=== PATIENT | female | born 1945 ===

== ENCOUNTER 2022-11-15 05:00 | Day surgery (SDC) | payer OTHER ==
[~2022-11-15] VITALS: Ht 170.2 cm; Wt 77.1 kg
[~2022-11-15 05:00] MED LIST: ALPRAZOLAM ER0.5 MG PO; AMBIEN10 MG PO; COZAAR50 MG PO; GLUMETZA500 MG PO; [UNRECOGNIZED DRUG - OTHER] PO
== END 2022-11-15 12:50 | disposition home or self-care (01) ==
LOC: CIR.AMB 05:00
PROVIDERS: ATTEND Specialist
DX: K40.90 Unilateral inguinal hernia, without obstruction or gangrene, not specified as recurrent (principal); I10 Essential (primary) hypertension; Z20.822 Contact with and (suspected) exposure to COVID-19; E11.9 Type 2 diabetes mellitus without complications
CPT/HCPCS: 49505; C1781